=== PATIENT | male | born 1970 | race Caucasian/White ===

== ENCOUNTER → 2016-06-24 | Outpatient (CLI) | payer MEDICAID ==
[~2016-06-24] MED LIST: ALLEGRA180 MG PO; AMBIEN 10MG TAB10 MG PO; LAMICTAL150 MG PO; NIACIN PO; PRAVASTATIN40 MG PO; PRILOSEC40 MG PO; VOLTAREN GEL1% TP; WELLBUTRIN 150150 MG PO
--- NOTE | 2016-06-24 12:33 | RADIOLOGY REPORT PS360 ---
US RUQ-(ABD LTD)1ORGAN/QUAD/FU HISTORY: Postprandial vomiting VOMITING ORDERING PHYSICIAN: MILDRED VENTURA MD PATIENT AGE: 45 years COMPARISON: None FINDINGS: PANCREAS: Unremarkable. No obvious mass or abnormal fluid collection. No ductal dilatation LIVER: Fatty liver RIGHT KIDNEY: Unremarkable. Normal size and echogenicity. No hydronephrosis GALLBLADDER: No gallstones, gallbladder wall thickening, pericholecystic fluid, or biliary dilatation. IMPRESSION: Hepatic steatosis otherwise negative right upper quadrant ultrasound. No gallstones apparent
== END ==
LOC: RAD 09:09
DX: R10.11 Right upper quadrant pain (principal)

== ENCOUNTER 2016-07-22 10:25 | Day surgery (SDC) | payer MEDICAID ==
[~2016-07-22] VITALS: Ht 170.2 cm; Wt 93.0 kg
--- NOTE | 2016-07-22 13:43 | Operative Note ---
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 Findings: Moderate pericholecystic fat stranding Procedure Description: After informed consent was obtained, the patient was taken to the operating room and placed in the supine position. General anesthesia was induced and the patient's abdomen was prepped and draped in a sterile fashion. After infiltration with local anesthetic a stab incision was made in the LEFT upper quadrant. A Veress needle was placed in position. The abdomen was insufflated. A 5 mm optical trocar was placed in position in the LEFT flank. Under direct visualization, a 12 mm trocar was placed in the subxiphoid position. A fairly large degree of adhesions were noted along the anterior abdominal wall in and around the umbilicus. Blunt dissection was utilized to free the tissue. A 5 mm trocar was placed in the supra umbilical position. 2 additional 5 mm trocars were placed in the RIGHT upper quadrant. The gallbladder was elevated up and over the liver margin. Pericholecystic fat stranding and adhesions were noted. A portion of omentum was adhered to the gallbladder fairly densely. The tissue around the cystic duct was carefully dissected. Clips were placed proximally and the duct was transected at the infundibulum utilizing harmonic shane. Harmonic shane were then utilized to remove the gallbladder from the liver margin. The gallbladder was placed in a retrieval bag and removed through the subxiphoid trocar site. The RIGHT upper quadrant was thoroughly irrigated. No active bleeding or bile leak was noted. The fascia at the subxiphoid trocar site was reapproximated utilizing the marisabel-close device. Pneumoperitoneum was released as the remaining trocars were removed. All wounds were irrigated and skin was closed with 4-0 Monocryl in a subcuticular fashion. Steri-Strips were applied and the patient's anesthetic agents were reversed. After extubation, the patient was transferred to recovery in stable condition. EBL (ml): 10 Anesthesia: GETA Complications: No immediate Specimens: Gallbladder and contents Disposition Disposition: Stable to recovery from where he will be discharged home. He will follow up in 1 -2 weeks. at [id number]
--- NOTE | 2016-07-22 13:55 | Anesthesia Record ---
Anesthesia Record Part I Total IV fluids: 1600 EBL (ml): 0 Urine Output: 0 B/P: 160/100 % SaO2: 93 Pulse: 93 Resps: 14 Temp: 98.1 Patient is: Awake, Stable Stable to PACU at: 1350 at 1354
--- NOTE | 2016-07-22 13:55 | Anesthesia Record ---
Anesthesia Record Part II Discharge time: 1420 Destination: Same day surgery PACU nurse assessment review? Yes Patient is: Awake, Stable Anesthesia complications? No at 3773
[2016-07-22 15:28] VITALS: BP 128/88
== END 2016-07-22 15:00 | disposition home or self-care (01) ==
LOC: SDC 10:25
PROVIDERS: Surgery
PROC: 0FT44ZZ Resection of Gallbladder, Percutaneous Endoscopic Approach (ICD-10-PCS; principal; 2016-07-22 12:00)
DX: K81.1 Chronic cholecystitis (principal)